=== PATIENT | female | born 1960 | race Caucasian/White ===

== ENCOUNTER 2017-06-25 11:12 | Emergency (ER) | payer BC ==
[~2017-06-25] VITALS: Ht 157.5 cm; Wt 59.4 kg
[2017-06-25] MEDS ORDERED: LISI20 PO (11:33)
[2017-06-25] MEDS ORDERED: HYDSUL200 PO (11:33)
[2017-06-25] MEDS ORDERED: POTCHL20ER PO (11:33)
[2017-06-25] MEDS ORDERED: ALPR.25 PO (11:34)
[2017-06-25] MEDS ORDERED: TRAM50 PO (11:34)
[2017-06-25 11:44] LABS: Hematocrit 30.9 % (33.0-51.0); Hemoglobin 10.6 g/dL (11.5-16.0); Mean Corpuscular HGB 30.6 pg (26.0-34.0); Mean Corpuscular HGB Conc 34.3 g/dL (31.5-36.5); Mean Corpuscular Volume 89 fL (80-100); Mean Platelet Volume 10.5 fL (9.1-12.4); Platelet Count 165 K/mm3 (150-400); RDW Coefficient Variation 12.3 % (11.7-14.2); Red Blood Cell Count 3.46 M/mm3 (3.80-5.20); White Blood Cell Count 6.64 K/mm3 (4.00-11.30)
[2017-06-25 11:58] LABS: Alanine Aminotransfer (ALT/SGP 64 U/L (12-78); Albumin/Globulin Ratio 0.7 (0.8-1.8); Alk Phos 204 U/L (50-136); Anion Gap 10 mmol/L (6-16); Aspartate Aminotrans (AST/SGOT 50 U/L (12-37); Bilirubin, Total 0.9 mg/dL (0.1-1.0); Blood Urea Nitrogen 16 mg/dL (8-24); Bun/Creatinine Ratio 22.2 (12.0-20.0); CO2, Blood 20 mmol/L (21-32); Calcium, Blood 8.5 mg/dL (8.5-10.1); Chloride, Blood 104 mmol/L (98-108); Creatinine, Blood 0.72 mg/dL (0.40-1.00); Globulin, Blood 4.1 g/dL (2.2-4.0); Glomerular Filtration Rate >60 (60-); Glucose, Blood 82 mg/dL (70-99); Potassium, Blood 3.8 mmol/L (3.5-5.5); Sodium, Blood 134 mmol/L (136-145); Total Protein, Blood 7.1 g/dL (6.4-8.2)
[2017-06-25 12:28] LABS: BAND PERCENT MAN 4 % (0-8); BASOPHILS ABSOLUTE MAN 0.06 K/mm3 (0.00-0.23); BASOPHILS PERCENT MAN 1 % (0-2); EOSINOPHILS PERCENT MAN 0 % (0-6); LYMPHOCYTES % ATYPICAL MANUAL 5 % (0-0); LYMPHOCYTES ABSOLUTE MAN 0.92 K/mm3 (0.84-5.20); LYMPHOCYTES PERCENT MAN 9 % (21-46); MONOCYTES ABSOLUTE MAN 0.33 K/mm3 (0.16-1.47); MONOCYTES PERCENT MAN 5 % (4-13); NEUTROPHILS ABSOLUTE MAN 5.31 K/mm3 (1.96-9.15); SEG NEUTROPHILS PERCENT MAN 76 % (41-73); TOTAL CELLS COUNTED 100
[2017-06-25 18:35] LABS: Source, Urine Voided
[2017-06-25 18:41] LABS: Bilirubin, Urine Neg (Neg); Blood, Urine Neg (Neg); Glucose Qualitative, Urine Neg (Neg); Ketones, Urine 1+ (Neg); Leukocyte Esterase, Urine Neg (Neg); Nitrite, Urine Neg (Neg); Protein, Urine 3+ (Neg); Urobilinogen, Urine NORM (Normal)
[2017-06-25 18:52] LABS: Appearance, Urine Cloudy (Clear); Color, Urine Amber (P-Yellow)
[2017-06-25 18:53] LABS: Amorphous Mod (0-Heavy); Bacteria Mod /hpf; Red Blood Cells, Urine 0-2 /hpf (0-2); Squamous Epithelial Cells Not Seen /hpf (Few); White Blood Cells, Urine 0-2 /hpf (0-5)
== END 2017-06-25 19:17 | disposition home or self-care (01) ==
LOC: ER 11:12
PROVIDERS: Emergency Medicine
DX: R16.1 Splenomegaly, not elsewhere classified (principal); M32.9 Systemic lupus erythematosus, unspecified; F17.200 Nicotine dependence, unspecified, uncomplicated; Z79.899 Other long term (current) drug therapy
CPT/HCPCS: 36415; 71046; 74177; 76705; 80053; 81001; 83605; 83690; 85025; 87040; 87086; 99284; J7030; Q9967

== ENCOUNTER → 2017-08-01 | Outpatient (CLI) | payer BC ==
[~2017-08-01] MED LIST: ALPR.25 PO; HYDSUL200 PO; LISI20 PO; POTCHL20ER PO; TRAM50 PO
[2017-08-01 12:44] LABS: BASOPHILS ABSOLUTE AUTO 0.01 K/mm3 (0.00-0.23); BASOPHILS PERCENT AUTO 0 % (0-2); EOSINOPHILS ABSOLUTE AUTO 0.04 K/mm3 (0.00-0.68); EOSINOPHILS PERCENT AUTO 1 % (0-6); Hematocrit 29.5 % (33.0-51.0); IMMATURE GRAN ABSOLUTE AUTO 0.01 K/mm3 (0.00-0.10); IMMATURE GRAN PERCENT AUTO 0 % (0-1); LYMPHOCYTES ABSOLUTE AUTO 1.06 K/mm3 (0.84-5.20); LYMPHOCYTES PERCENT AUTO 26 % (21-46); MONOCYTES ABSOLUTE AUTO 0.22 K/mm3 (0.16-1.47); MONOCYTES PERCENT AUTO 5 % (4-13); Mean Corpuscular HGB 30.1 pg (26.0-34.0); Mean Corpuscular HGB Conc 33.9 g/dL (31.5-36.5); Mean Corpuscular Volume 89 fL (80-100); Mean Platelet Volume 10.6 fL (9.1-12.4); NEUTROPHILS ABSOLUTE AUTO 2.78 K/mm3 (1.96-9.15); NEUTROPHILS PERCENT AUTO 68 % (41-73); Platelet Count 146 K/mm3 (150-400); RDW Coefficient Variation 13.6 % (11.7-14.2); RDW Standard Deviation 43.8 fL (35.1-46.3); Red Blood Cell Count 3.32 M/mm3 (3.80-5.20); White Blood Cell Count 4.12 K/mm3 (4.00-11.30)
[2017-08-01 13:13] LABS: Percent Saturation 10.8 % (15.0-50.0)
[2017-08-01 13:21] LABS: Alanine Aminotransfer (ALT/SGP 57 U/L (12-78); Albumin, Blood 3.7 g/dL (3.4-5.0); Albumin/Globulin Ratio 1.1 (0.8-1.8); Alk Phos 112 U/L (50-136); Anion Gap 7 mmol/L (6-16); Aspartate Aminotrans (AST/SGOT 44 U/L (12-37); Bilirubin, Total 0.5 mg/dL (0.1-1.0); Blood Urea Nitrogen 13 mg/dL (8-24); CO2, Blood 25 mmol/L (21-32); Calcium, Blood 8.3 mg/dL (8.5-10.1); Chloride, Blood 104 mmol/L (98-108); Creatinine, Blood 0.69 mg/dL (0.40-1.00); Globulin, Blood 3.5 g/dL (2.2-4.0); Glomerular Filtration Rate >60 (60-); Glucose, Blood 86 mg/dL (70-99); Potassium, Blood 4.5 mmol/L (3.5-5.5); Sodium, Blood 136 mmol/L (136-145); Total Protein, Blood 7.2 g/dL (6.4-8.2)
[2017-08-03 14:09] LABS: A/G RATIO 1.2 (0.7-1.7); ALPHA-1-GLOBULIN 0.1 g/dL (0.0-0.4); ALPHA-2-GLOBULIN 0.9 g/dL (0.4-1.0); BETA GLOBULIN 0.9 g/dL (0.7-1.3); GAMMA GLOBULIN 1.4 g/dL (0.4-1.8); GLOBULIN, TOTAL 3.4 g/dL (2.2-3.9); M-SPIKE Not Observed g/dL (Not Observed); PROTEIN, TOTAL, SERUM 7.4 g/dL (6.0-8.5)
== END | disposition home or self-care (01) ==
LOC: LAB 12:29 → LAB SHORT 12:29
PROVIDERS: Internal Medicine Hematology & Oncology; Nurse Practitioner Family
DX: D64.9 Anemia, unspecified (principal); R16.1 Splenomegaly, not elsewhere classified; M32.9 Systemic lupus erythematosus, unspecified; G60.9 Hereditary and idiopathic neuropathy, unspecified
CPT/HCPCS: 80053; 82607; 82728; 82746; 83540; 83550; 84165; 85025

== ENCOUNTER 2018-09-09 15:37 | Observation (INO) | payer MEDICARE, OTHER ==
[~2018-09-09] VITALS: Ht 157.5 cm; Wt 63.5 kg
[~2018-09-09 15:37] MED LIST changes: -ALPR.25 PO; -LISI20 PO; -TRAM50 PO; +ZESTRIL40 MG PO
[2018-09-09 17:26] LABS: BASOPHILS ABSOLUTE AUTO 0.04 K/mm3 (0.00-0.23); BASOPHILS PERCENT AUTO 0 % (0-2); EOSINOPHILS ABSOLUTE AUTO 0.04 K/mm3 (0.00-0.68); EOSINOPHILS PERCENT AUTO 0 % (0-6); Hematocrit 43.8 % (33.0-51.0); Hemoglobin 14.9 g/dL (11.5-16.0); IMMATURE GRAN ABSOLUTE AUTO 0.07 K/mm3 (0.00-0.10); IMMATURE GRAN PERCENT AUTO 1 % (0-1); LYMPHOCYTES ABSOLUTE AUTO 0.51 K/mm3 (0.84-5.20); LYMPHOCYTES PERCENT AUTO 5 % (21-46); MONOCYTES ABSOLUTE AUTO 0.59 K/mm3 (0.16-1.47); MONOCYTES PERCENT AUTO 6 % (4-13); Mean Corpuscular HGB 33.7 pg (26.0-34.0); Mean Corpuscular Volume 99 fL (80-100); Mean Platelet Volume 10.6 fL (9.1-12.4); NEUTROPHILS PERCENT AUTO 88 % (41-73); Platelet Count 199 K/mm3 (150-400); RDW Coefficient Variation 13.4 % (11.7-14.2); Red Blood Cell Count 4.42 M/mm3 (3.80-5.20); White Blood Cell Count 10.15 K/mm3 (4.00-11.30)
[2018-09-09 17:43] LABS: Source, Urine Clean Catch
[2018-09-09 17:49] LABS: Albumin, Blood 4.1 g/dL (3.4-5.0); Albumin/Globulin Ratio 1.2 (0.8-1.8); Bilirubin, Total 1.1 mg/dL (0.1-1.0); Bun/Creatinine Ratio 16.2 (12.0-20.0); Creatinine, Blood 1.79 mg/dL (0.40-1.00); Globulin, Blood 3.5 g/dL (2.2-4.0); Potassium, Blood 4.2 mmol/L (3.5-5.5); Total Protein, Blood 7.6 g/dL (6.4-8.2)
[2018-09-09 17:51] LABS: Blood, Urine 1+ (Neg); Glucose Qualitative, Urine Neg (Neg); Ketones, Urine 2+ (Neg); Leukocyte Esterase, Urine 1+ (Neg); Nitrite, Urine Neg (Neg); Protein, Urine 3+ (Neg); Urobilinogen, Urine 1+ (Normal)
[2018-09-09 18:20] LABS: Appearance, Urine Hazy (Clear); Color, Urine Yellow (P-Yellow)
[2018-09-09 18:27] LABS: Bilirubin, Urine 1+ (Neg)
[2018-09-09 18:28] LABS: Bacteria Few /hpf; Red Blood Cells, Urine 0-2 /hpf (0-2); Squamous Epithelial Cells Mod /hpf (Few)
[2018-09-09 18:29] LABS: Hyaline Casts 25-50 /lpf (0-2)
[2018-09-09] MEDS ORDERED: MYCOPHENOLATE500 MG PO (20:46)
[2018-09-09] MEDS ORDERED: Omeprazole20 M1 PO (21:59)
[2018-09-09] MEDS ORDERED: ALPR.25 PO (22:06)
[2018-09-09] MEDS ORDERED: TRAM50 PO (22:06)
--- NOTE | 2018-09-10 06:29 | NUR ---
SHIFT SUMMARY RECEIVED REPORT FROM ED RN. ARRIVED TO MEDICAL UNIT VIA W/C. NO ASSISTANCE NEEDED DURING TRANSFER. ORIENTED TO ROOM AND CALL SYSTEM. A/O, ABLE TO MAKE NEEDS KNOWN. COOPERATIVE WITH CARE. ANSWERS QUESTIONS APPRORIATELY. NO C/O PAIN/DISCOMFORT. INDEPENDENT IN ROOM. NO EPISODES OF EMESIS OR DIARRHEA. DENIES NAUSEA. APPEARED TO REST MUCH OF SHIFT. VSS/AFEBRILE. NO ACUTE CHANGES OVERNIGHT. BED IN LOWEST POSITION. CALL LIGHT AND BELONGINGS WITHIN REACH. WCTM. REPORT TO ONCOMING RN.
[2018-09-10 06:43] LABS: Alanine Aminotransfer (ALT/SGP 18 U/L (12-78); Albumin/Globulin Ratio 1.2 (0.8-1.8); Alk Phos 36 U/L (50-136); Anion Gap 11 mmol/L (6-16); Aspartate Aminotrans (AST/SGOT 13 U/L (12-37); Bilirubin, Total 1.2 mg/dL (0.1-1.0); Blood Urea Nitrogen 25 mg/dL (8-24); Bun/Creatinine Ratio 26.1 (12.0-20.0); CO2, Blood 17 mmol/L (21-32); Calcium, Blood 7.9 mg/dL (8.5-10.1); Chloride, Blood 108 mmol/L (98-108); Creatinine, Blood 0.96 mg/dL (0.40-1.00); Globulin, Blood 2.6 g/dL (2.2-4.0); Glomerular Filtration Rate >60 (60-); Glucose, Blood 59 mg/dL (70-99); Potassium, Blood 3.4 mmol/L (3.5-5.5); Sodium, Blood 136 mmol/L (136-145)
[2018-09-10 06:51] LABS: Total Protein, Blood 5.6 g/dL (6.4-8.2)
[2018-09-10 10:11] LABS: Adenovirus F 40/41 Not Detected (NOT DETECT); Astrovirus Not Detected (NOT DETECT); Campylobacter Sp Not Detected (NOT DETECT); Cryptosporidium Not Detected (NOT DETECT); Cyclospora Cayetanensis Not Detected (NOT DETECT); E. Coli O157 Not Detected (NOT DETECT); Entamoeba Histolytica Not Detected (NOT DETECT); Enteroaggregative E. coli-EAEC Not Detected (NOT DETECT); Enteropathogenic E. coli-EPEC Detected (NOT DETECT); Enterotoxigenic E. coli-ETEC Not Detected (NOT DETECT); Giardia Lamblia Not Detected (NOT DETECT); Norovirus GI/GII Detected (NOT DETECT); Plesiomonas Shigelloides Not Detected (NOT DETECT); Rotavirus A Not Detected (NOT DETECT); Salmonella Sp Not Detected (NOT DETECT); Sapovirus Not Detected (NOT DETECT); Shiga Toxin-prod E. coli-STEC Not Detected (NOT DETECT); Shigella/Enteroin E. coli-EIEC Not Detected (NOT DETECT); Vibrio Cholerae Not Detected (NOT DETECT); Vibrio Sp Not Detected (NOT DETECT); Yersinia Enterocolitica Not Detected (NOT DETECT)
[2018-09-10] MEDS ORDERED: CIPR500 PO (15:33)
--- NOTE | 2018-09-10 16:33 | NUR ---
patient discharged home. medications faxed to [facility] in [place]. all iv lined discontinued.
== END 2018-09-10 16:10 | disposition home or self-care (01) ==
LOC: ER 15:37 → MEDS 15:38 → ENPENDDIS 09-10 15:24 → MEDS 09-10 16:10
PROVIDERS: Emergency Medicine; Physician Assistant; ADMIT Hospitalist
DX: N17.9 Acute kidney failure, unspecified (principal); R11.10 Vomiting, unspecified; R19.7 Diarrhea, unspecified; E87.1 Hypo-osmolality and hyponatremia; E87.2 Acidosis; F41.9 Anxiety disorder, unspecified; I10 Essential (primary) hypertension; M32.9 Systemic lupus erythematosus, unspecified; F17.210 Nicotine dependence, cigarettes, uncomplicated; Z79.899 Other long term (current) drug therapy
CPT/HCPCS: 36415; 74176; 80053; 81001; 83690; 85025; 87086; 87507; 96361; 96374; 96375; 96376; 99285-25; A9270; G0378; J1170; J1200; J1644; J2765; J7030; J7120; J7517

== ENCOUNTER → 2018-11-13 | Outpatient (CLI) | payer MEDICARE, OTHER ==
[~2018-11-13] MED LIST changes: +ALPR.25 PO; +CIPR500 PO; +MYCOPHENOLATE500 MG PO; +Omeprazole20 M1 PO; +TRAM50 PO
[2018-11-13 14:23] LABS: Source, Urine Clean Catch
[2018-11-13 18:34] LABS: Bilirubin, Urine Neg (Neg); Blood, Urine Neg (Neg); Glucose Qualitative, Urine Neg (Neg); Ketones, Urine Neg (Neg); Leukocyte Esterase, Urine Neg (Neg); Nitrite, Urine Neg (Neg); Protein, Urine 1+ (Neg); Specific Gravity, Urine 1.015 (1.003-1.022); Urobilinogen, Urine NORM (Normal)
[2018-11-13 18:47] LABS: Appearance, Urine Clear (Clear); Color, Urine Yellow (P-Yellow)
== END | disposition home or self-care (01) ==
LOC: LAB 13:14 → LAB SHORT 13:14 → LAB FUT 11-13 12:05
PROVIDERS: Internal Medicine Rheumatology
DX: M32.19 Other organ or system involvement in systemic lupus erythematosus (principal)
CPT/HCPCS: 81003

== ENCOUNTER → 2020-11-24 | Outpatient (CLI) | payer MEDICARE, OTHER | LOC: LAB SHORT 12:30 → LAB 12:30 | DX: R30.9 Painful micturition, unspecified (principal); B96.89 Other specified bacterial agents as the cause of diseases classified elsewhere | CPT/HCPCS: 87077; 87086; 87186 ==

== ENCOUNTER → 2022-05-16 | Outpatient (CLI) | payer MEDICARE, OTHER | END | disposition home or self-care (01) | LOC: LAB SHORT 13:02 → LAB 13:02 | DX: D22.62 Melanocytic nevi of left upper limb, including shoulder (principal) | CPT/HCPCS: 88305 ==

== ENCOUNTER 2023-11-13 22:38 | Inpatient (IN) | payer MEDICARE, OTHER ==
[~2023-11-13] VITALS: Ht 157.5 cm; Wt 56.4 kg
[~2023-11-13 22:38] MED LIST changes: +Aspirin 81 MG Chew PO ONE; +Heparin Sodium,Porcine 5,000 UNIT/0.5 ML SDV SC ONE; +OMEP20ER; -Omeprazole20 M1 PO; +Ticagrelor 90 MG TABLET PO ONE
[2023-11-13 22:57] LABS: Calcium, Ionized (POC) 1.13 mmol/L (1.10-1.46); Chloride (POC) 102 mmol/L (98-108); Creatinine (POC) 0.7 mg/dL (0.6-1.0); Glucose (ISTAT POC) 122 mg/dL (70-99); Hemoglobin (POC) 11.2 g/dL (12.0-16.0); Potassium (POC) 3.7 mmol/L (3.5-5.5); Sodium (POC) 134 mmol/L (135-148); Total CO2 (POC) 19 mmol/L (21-32)
[2023-11-13] MEDS ORDERED: Nitroglycerin 2 MG/20 ML BTL ONE (23:07)
[2023-11-13] MEDS ORDERED: NS 1,000 ML IV ONE ×2 (23:07→23:09)
[2023-11-13] MEDS ORDERED: Heparin Sodium 1000 Units/ML 10ML MDV ONE (23:07)
[2023-11-13] MEDS ORDERED: NS 250 ML IV ONE (23:07)
[2023-11-13] MEDS ORDERED: NiCARdipine HCL 1,000 MCG/5 ML SYR ONE (23:07)
[2023-11-13] MEDS ORDERED: Phenylephrine HCl 100 MCG/ML-NS 10MLSYR (1MG/10ML) ONE (23:09)
[2023-11-13] MEDS ORDERED: Atropine Sulfate 0.1 MG/ML 10ML SYR ONE (23:09)
[2023-11-13] MEDS ORDERED: Midazolam HCl 1MG / ML 2ML Vial ONE (23:09)
[2023-11-13] MEDS ORDERED: FentaNYL Citrate 50 MCG/ML 2 ML Injection ONE (23:09)
[2023-11-13 23:10] LABS: BASOPHILS ABSOLUTE AUTO 0.03 K/mm3 (0.00-0.23); BASOPHILS PERCENT AUTO 1 % (0-2); EOSINOPHILS ABSOLUTE AUTO 0.04 K/mm3 (0.00-0.68); EOSINOPHILS PERCENT AUTO 1 % (0-6); Hematocrit 33.7 % (33.0-51.0); Hemoglobin 11.6 g/dL (11.5-16.0); IMMATURE GRAN ABSOLUTE AUTO 0.03 K/mm3 (0.00-0.10); IMMATURE GRAN PERCENT AUTO 1 % (0-1); LYMPHOCYTES ABSOLUTE AUTO 1.09 K/mm3 (0.84-5.20); LYMPHOCYTES PERCENT AUTO 17 % (21-46); MONOCYTES ABSOLUTE AUTO 0.72 K/mm3 (0.16-1.47); MONOCYTES PERCENT AUTO 11 % (4-13); Mean Corpuscular HGB 30.8 pg (26.0-34.0); Mean Corpuscular HGB Conc 34.4 g/dL (31.5-36.5); Mean Corpuscular Volume 89 fL (80-100); NEUTROPHILS ABSOLUTE AUTO 4.69 K/mm3 (1.96-9.15); NEUTROPHILS PERCENT AUTO 71 % (41-73); Platelet Count 201 K/mm3 (150-400); RDW Coefficient Variation 12.5 % (11.7-14.2); RDW Standard Deviation 41.2 fL (35.1-46.3); Red Blood Cell Count 3.77 M/mm3 (3.80-5.20)
[2023-11-13 23:33] LABS: International Normalized Ratio 0.94; Prothrombin Time Results 10.1 Sec (9.7-11.5)
[2023-11-13 23:38] LABS: Albumin, Blood 3.7 g/dL (3.4-5.0); Albumin/Globulin Ratio 0.9 (0.8-1.8); Bilirubin, Total 0.6 mg/dL (0.1-1.0); Bun/Creatinine Ratio 21.2 (12.0-20.0); Calcium, Blood 8.9 mg/dL (8.5-10.1); Creatinine, Blood 0.71 mg/dL (0.40-1.00); Globulin, Blood 4.1 g/dL (2.2-4.0); Potassium, Blood 3.7 mmol/L (3.5-5.5); Total Protein, Blood 7.8 g/dL (6.4-8.2)
[2023-11-13 23:48] LABS: CHOL/HDL RATIO 2.4; Cholesterol 197 mg/dL (50-200); HDL Cholesterol 83 mg/dL (>39); LDL/HDL RATIO 1.1; Low Density Lipoprotein Chol 95 mg/dL (0-110); Magnesium, Blood 1.9 mg/dL (1.6-2.4); Triglycerides 95 mg/dL (30-160); Very Low Density Lipoprot Chol 19 mg/dL (6-32)
[2023-11-14] VITALS (45 sets, daily range): BP systolic 84–149; BP diastolic 63–104
[2023-11-14] MEDS ORDERED: THERA-D2000 UNIT PO (00:40)
[2023-11-14] MEDS ORDERED: NS 1,000 ML IV SCH (00:50)
[2023-11-14] MEDS ORDERED: Nitroglycerin 0.4 MG SUBL SL PRN (00:55)
[2023-11-14] MEDS ORDERED: Acetaminophen 325 MG TABLET PO PRN (00:55)
[2023-11-14] MEDS ORDERED: OxyCODONE HCL 5 MG TAB PO PRN (00:55)
--- NOTE | 2023-11-14 01:00 | NUR ---
PT ARRIVES TO ROOM ICU 7 AT 0026 S/P PCI. TWO STENTS PLACED. PT STATES THAT SHE STILL HAS SOME RESIDUAL CHEST DISCOMFORT. RIGHT RADIAL ARTERY ACCESS. TR BAND IN PLACE. EKG DONE AND SHOWN TO DR STEWARD. DR VILLASEÑOR AND DR STEWARD COME TO THE ROOM TO SEE PT. ORDERS RECEIVED. PT ABLE TO PARTICIPATE IN ADMISSION QUESTIONS. PT GOOD HISTORIAN. WILL REVIEW CHART AND PLAN OF CARE FOR THIS PT.
[2023-11-14] MEDS ORDERED: OxyCODONE HCL 5 MG TAB ONE (03:50)
--- NOTE | 2023-11-14 04:00 | NUR ---
PT MEDICATED WITH 5 MG OXYCODONE FOR CHEST PAIN. PENDING RESULTS. PT HAS BEEN UP TO TOILET SEVERAL TIMES TO VOID. NO COMPLAINS OF VERTIGO WITH BEING UP. TR BAND DEFLATION HAS BEGUN. NO S/S OOZING OR HEMATOMA. TEACHING DONE ON PROCEDURE.
[2023-11-14] MEDS ORDERED: Ondansetron HCl 2 MG / ML 2ML Vial IV PRN (04:45)
[2023-11-14] MEDS ORDERED: Morphine Sulfate 4 MG/1 ML Injection IV PRN (04:45)
[2023-11-14] MEDS ORDERED: LORazepam 2 MG/ML 1ML Injection IV PRN (04:50)
[2023-11-14 05:34] LABS: Hematocrit 30.3 % (33.0-51.0); Hemoglobin 10.1 g/dL (11.5-16.0); Mean Corpuscular HGB 30.5 pg (26.0-34.0); Mean Corpuscular HGB Conc 33.3 g/dL (31.5-36.5); Mean Corpuscular Volume 92 fL (80-100); Mean Platelet Volume 10.1 fL (9.1-12.4); Platelet Count 150 K/mm3 (150-400); RDW Coefficient Variation 12.5 % (11.7-14.2); RDW Standard Deviation 42.1 fL (35.1-46.3); Red Blood Cell Count 3.31 M/mm3 (3.80-5.20)
--- NOTE | 2023-11-14 05:55 | NUR ---
PT'S TR BAND NEARLY DEFLATED. WILL HAVE THIS DONE SHORTLY. PT HAS HAD COMPLAINT OF HER CHEST AND BACK HURTING. MEDICATED PT WITH OXYCODONE 5 MG PO WHEREAS SHE STATES THIS WAS NOT AFFECTIVE. FOLLOWED BY 1 MG MORPHINE. AGAIN, NO RELIEF. DID ADMINISTER TWO DOSES OF SL NITRO WHICH WAS AFFECTIVE. TOOK PT'S PAIN FROM 8/10 TO 2/10. DID HAVE SHORT EPISODE OF NAUSEA WITHOUT VOMITING. AM EKG DONE. DOES REVEAL A SLIGHT DECREASE IN ST ELEVATION. WILL CONTINUE TO MONITOR PT, AND WILL REPORT OFF TO ONCOMING RN.
[2023-11-14 05:58] LABS: Bun/Creatinine Ratio 19.7 (12.0-20.0); Calcium, Blood 7.9 mg/dL (8.5-10.1); Creatinine, Blood 0.61 mg/dL (0.40-1.00); Potassium, Blood 3.7 mmol/L (3.5-5.5)
--- NOTE | 2023-11-14 07:00 | NUR ---
ASSUMPTION OF CARE PT IS AWAKE, PARTICIPATES IN CONVERSATION. R RADIAL TR BAND SITE VISUALIZED WITH ADELIA BRAR. TR BAND IS DEFLATED, REMAINS IN PLACE WITH ARMBOARD. NO TISSUE DISCOLORATION, TISSUE SOFT. PT IS HAVING 5/10 CHEST/BACK PAIN THAT INCREASED WITH MOVEMENT AND COUGHING. HR 90S ON MONITOR, BP STABLE. BED IN LOW POSITION, CALL LIGHT WITHIN REACH.
--- NOTE | 2023-11-14 08:16 | NUR ---
Ressessed CP after first nitro. Pt laying still in bed, grimacing. Reports that pain is 5/10 at rest and worse with any activity. Second dose of nitroglycerin given. On reassessment, pt states her pain is now a 4/10.
[2023-11-14] MEDS ORDERED: Aspirin 81 MG Chew PO SCH (09:00)
[2023-11-14] MEDS ORDERED: Ticagrelor 90 MG TABLET PO SCH (09:00)
[2023-11-14] MEDS ORDERED: Metoprolol Tartrate 25 MG Tab PO SCH (09:00)
[2023-11-14] MEDS ORDERED: Metoprolol Succinate 25 MG TABCR PO SCH ×2 (09:00→21:00)
[2023-11-14] MEDS ORDERED: Losartan Potassium 50 MG Tab PO SCH (09:00)
[2023-11-14] MEDS ORDERED: Lisinopril 20 MG Tab PO SCH (09:00)
[2023-11-14] MEDS ORDERED: TraMADol HCl 50 MG Tab PO PRN (09:50)
--- NOTE | 2023-11-14 13:33 | NUR ---
CARDIOLOGY FOLLOW UP APPOINTMENT APPOINTMENT SCHEDULED FOR 11/30/23 AT 2:00PM. ADDED TO DISCHARGE AND REMINDER CARD PLACED ON FRONT OF CHART.
--- NOTE | 2023-11-14 17:03 | NUR ---
INTRODUCED MYSELF TO THE PATIENT, QUESTIONED HER ABOUT HER PAIN, SHE STATED IT WAS IMPROVING BUT STILL HAD SOME. SHE ASKED FOR SPRITE, DENIED ANY OTHER REQUESTS. THEODORE CONTINUES WITH CARE, OBSERVED BY THIS RN.
--- NOTE | 2023-11-14 18:14 | NUR ---
PT IS AWAKE AND SITTING UP IN BED. VSS. PCI DONE YESTERDAY, TR BAND REMOVED TODAY. ARMBOARD WITH TEGADERM IN PLACE ON R WRIST. NO DISCOLORATION OF THE TISSUE. ECHO DONE TODAY. PT HAD A DECREASED APPETITE T/O SHIFT, BUT TOLERATING DIET W/O COMPLAINTS OF N/V. AMBULATING TO THE TOILET INDEPENDENTLY. C/O CHEST AND BACK PAIN, MANAGED WITH RELIEF WITH ULTRAM. PT IS PCU STATUS.
[2023-11-14] MEDS ORDERED: Atorvastatin 40 MG Tab PO SCH (21:00)
[2023-11-15 03:24] VITALS: BP 124/77
[2023-11-15 03:36] LABS: Hemoglobin 10.7 g/dL (11.5-16.0); Mean Corpuscular HGB Conc 35.7 g/dL (31.5-36.5); Platelet Count 153 K/mm3 (150-400); RDW Coefficient Variation 12.7 % (11.7-14.2); RDW Standard Deviation 40.4 fL (35.1-46.3); Red Blood Cell Count 3.45 M/mm3 (3.80-5.20)
[2023-11-15 03:48] LABS: Mean Corpuscular Volume 87 fL (80-100)
[2023-11-15 03:56] LABS: Bun/Creatinine Ratio 23.3 (12.0-20.0); Creatinine, Blood 0.56 mg/dL (0.40-1.00); Potassium, Blood 3.5 mmol/L (3.5-5.5)
[2023-11-15 07:39] VITALS: BP 109/68
[2023-11-15] MEDS ORDERED: Potassium Chloride 20 MEQ/15 ML UDC PO ONE (08:15)
[2023-11-15] MEDS ORDERED: Lisinopril 10 MG Tab PO SCH (09:00)
[2023-11-15 11:46] VITALS: BP 119/75
[2023-11-15] MEDS ORDERED: Acetaminophen650 M1 PO (12:05)
[2023-11-15] MEDS ORDERED: ASPI81CH PO (12:05)
[2023-11-15] MEDS ORDERED: ATOR40TA PO (12:05)
[2023-11-15] MEDS ORDERED: METO25ER PO (12:06)
[2023-11-15] MEDS ORDERED: NITR.4SL SL (12:06)
[2023-11-15] MEDS ORDERED: PRASUGREL HCL10 MG PO (12:07)
[2023-11-15] MEDS ORDERED: SPIR25 PO (12:07)
[2023-11-15 12:32] LABS: Bun/Creatinine Ratio 25.3 (12.0-20.0); Calcium, Blood 8.1 mg/dL (8.5-10.1); Creatinine, Blood 0.63 mg/dL (0.40-1.00)
--- NOTE | 2023-11-15 15:13 | NUR ---
SUMMARY PT A/O X4. AMBULATES AROUND UNIT WITHOUT ISSUE. DENIES SOB OR DIZZINESS. NO ACUTE CHANGES. DISCHARGE INSTRUCTIONS GIVEN. PT TAKEN OUT TO CAR VIA W/C ACCOMPANIES BY SISTER. NO SIGN OF DISTRESS.
[2023-11-16] MEDS ORDERED: Spironolactone 12.5 MG TAB PO SCH (09:00)
== END 2023-11-15 15:00 | disposition home or self-care (01) | DRG 322 ==
LOC: ER 22:38 → ICUE 22:57
PROVIDERS: Hospitalist; Internal Medicine Cardiovascular Disease; Student in an Organized Health Care Education/Training Program; ADMIT Family Medicine
PROC: 027135Z Dilation of Coronary Artery, Two Arteries with Two Drug-eluting Intraluminal Devices, Percutaneous Approach (ICD-10-PCS; principal; 2023-11-13)
PROC: 4A023N7 Measurement of Cardiac Sampling and Pressure, Left Heart, Percutaneous Approach (ICD-10-PCS; 2023-11-13)
PROC: B2111ZZ Fluoroscopy of Multiple Coronary Arteries using Low Osmolar Contrast (ICD-10-PCS; 2023-11-13)
DX: I21.09 ST elevation (STEMI) myocardial infarction involving other coronary artery of anterior wall (principal); E87.1 Hypo-osmolality and hyponatremia; I50.30 Unspecified diastolic (congestive) heart failure; E87.20 Acidosis, unspecified; I13.0 Hypertensive heart and chronic kidney disease with heart failure and stage 1 through stage 4 chronic kidney disease, or unspecified chronic kidney disease; F41.9 Anxiety disorder, unspecified; K21.9 Gastro-esophageal reflux disease without esophagitis; I25.5 Ischemic cardiomyopathy; M32.9 Systemic lupus erythematosus, unspecified; F17.210 Nicotine dependence, cigarettes, uncomplicated; N18.2 Chronic kidney disease, stage 2 (mild); E78.5 Hyperlipidemia, unspecified; Z79.891 Long term (current) use of opiate analgesic; Z79.899 Other long term (current) drug therapy; Z79.2 Long term (current) use of antibiotics; Z98.51 Tubal ligation status
CPT/HCPCS: 36415; 71045; 76937; 80047; 80048; 80053; 80061; 83605; 83735; 84484; 85014; 85025; 85027; 85347; 85610; 85730; 86850; 86900; 86901; 93005; 93010; 93306; 93458; 99152; 99153; 99285-25; A9270; C1725; C1769; C1874; C1887; C1894; C9600; C9606; J0461; J1644; J2250; J2270; J2371; J3010; J7030; J7050; Q9967